=== PATIENT | female | born 1965 | race Caucasian/White ===

== ENCOUNTER → 2017-12-07 | Outpatient (CLI) | payer BC ==
[~2017-12-07] MED LIST: DIVA250T4 PO; ESTR-2 PO; ESTR1TAB24 PO; INDO25CA PO; KEFLEX 500MG PO; LISI20TA PO; PROP80CA4 PO; SUMA100T2 PO; VICODIN 5 MG PO
--- NOTE | 2017-12-07 13:27 | Diagnostic Imaging Report ---
Indication: Routine screening. Comparison is made with prior study from 06/19/2016 and 01/17/2013. The current study was also evaluated with a Computer Aided Detection (CAD) system. 3D tomographic images obtained and reviewed. Findings: Scattered fibroglandular densities are identified bilaterally. No mass or malignant-appearing microcalcifications are seen. Axillae unremarkable. Impression: BI-RADS category 1. No mammographic features suspicious for malignancy are identified. ACR BI-RADS Category 1: Negative. Result letter will be mailed to the patient. Note: At least 10% of breast cancer is not imaged by mammography. Dictated by: Dictated on workstation # [id number]
== END ==
LOC: RAD 09:07
PROVIDERS: ATTEND Nurse Practitioner Family
DX: Z12.31 Encounter for screening mammogram for malignant neoplasm of breast (principal)
CPT/HCPCS: 77067